=== PATIENT | female | born 1970 | race Caucasian/White ===

== ENCOUNTER → 2021-12-25 15:50 | Outpatient (CLI) | payer OTHER, SELFPAY ==
--- NOTE | 2021-12-25 15:54 | DI.RAD.S_ITS ---
PROCEDURE: XR HIP W PEL IF DONE ROXANA MIN 4V INDICATIONS: Low back right hip pain TECHNIQUE: AP pelvis with lateral view(s) of the bilateral hip(s). COMPARISON: None. FINDINGS: Bones: No fractures or dislocations. Pelvic ring appears intact. No suspicious bony lesions. Mild symmetric axial joint space narrowing. Soft tissues: The visualized bowel gas pattern is normal. No suspicious soft tissue calcifications. IMPRESSION: Mild symmetric hip joint degeneration. Dictated by: Tyler Sharif RR Interpreted: Kaley Newton MD on 12/25/2021 at 16:29 Transcribed by: GERA on 12/25/2021 at 16:30 Approved by: Kaley Newton M.D. on 01/06/2022 at 16:23
--- NOTE | 2021-12-25 15:54 | DI.MRI.S_ITS ---
PROCEDURE: MR LUMBAR SPINE WO CON INDICATIONS: Low back right hip pain TECHNIQUE: Noncontrast sagittal T1 spin echo and T2 fast echo, sagittal STIR, and T2 fast spin echo through the lumbar spine. In cases with scoliosis, additional coronal T2 fast spin echo may be performed. COMPARISON: [facility], CR, XR LUMBAR SPINE MIN 4V, 12/25/2021, 15:45. FINDINGS: Image quality: Excellent. Alignment and Curvature: There is normal bony alignment. Bone Marrow: Marrow is of normal overall signal. No acute vertebral body compression fractures. Spinal Cord: Conus medullaris terminates at the L1-L2 level. Visualized cord demonstrates normal signal and size. Paraspinous Soft Tissues: No paravertebral masses. T12-L1: No canal stenosis or foraminal stenosis. L1-L2: Minimal disc bulge. Facet hypertrophy. No canal stenosis or foraminal stenosis. L2-L3: Mild disc bulge. Facet hypertrophy. Mild canal stenosis. No significant foraminal stenosis. L3-L4: Mild disc bulge. Facet hypertrophy. Mild canal stenosis. Mild right foraminal stenosis. L4-L5: Disc bulge. Facet hypertrophy. Hbey-dn-emkthopg canal stenosis. Moderate right foraminal stenosis with mild flattening deformity on the exiting right L4 nerve root. L5-S1: Disc bulge. Facet hypertrophy. No canal stenosis. Mild bilateral foraminal stenosis. IMPRESSION: 1. Multilevel facet arthropathy. 2. Canal stenosis is mild at L2-L3, mild at L3-L4, and mild to moderate at L4-L5. 3. Multilevel foraminal narrowing as described above. Findings include moderate right foraminal narrowing at L4-L5. Dictated by: Titi Navarro M.D. on 12/26/2021 at 8:29 Approved by: Titi Navarro M.D. on 12/26/2021 at 8:46
--- NOTE | 2021-12-25 15:54 | DI.RAD.S_ITS ---
PROCEDURE: XR LUMBAR SPINE MIN 4V INDICATIONS: BACK PAIN TECHNIQUE: 5 views of the lumbar spine acquired, including flexion and extension views. COMPARISON: [facility], RG, XR L-SPINE 4-6V, 12/11/2021, 17:19. FINDINGS: Bones: 5 nonrib-bearing vertebrae are present. Mild levo scoliosis centered at the L4 level. 2 mm retrolisthesis L1-L2, L2-L3 and L3-L4. Mild multilevel disc height loss and there is facet joint arthropathy at the L4-L5 and L5-S1 levels. No pars interarticularis defects. No vertebral body compression fractures. No suspicious bony lesions. Soft tissues: Overlying bowel gas pattern is normal. No suspicious soft tissue calcifications. Cholecystectomy clips. IMPRESSION: 1. Mild multilevel spondylosis. Dictated by: Tyler Sharif [facility] Interpreted: Kaley Newton MD on 12/25/2021 at 16:30 Transcribed by: GERA on 12/25/2021 at 16:33 Approved by: Kaley Newton M.D. on 01/06/2022 at 16:24
== END ==
PROVIDERS: Family Provider Specialist; PCP Specialist; Referring Provider Physical Medicine & Rehabilitation; Visit Provider Physical Medicine & Rehabilitation
DX: M47.26 Other spondylosis with radiculopathy, lumbar region (principal); M47.27 Other spondylosis with radiculopathy, lumbosacral region; M48.061 Spinal stenosis, lumbar region without neurogenic claudication; M48.07 Spinal stenosis, lumbosacral region; M25.551 Pain in right hip; M16.0 Bilateral primary osteoarthritis of hip; M25.859 Other specified joint disorders, unspecified hip; M54.9 Dorsalgia, unspecified
CPT/HCPCS: 72110; 72148; 73522

== ENCOUNTER → 2022-01-26 11:40 | Outpatient (CLI) | payer OTHER, SELFPAY ==
[2022-01-26 12:29] LABS: COVID19 -Nasal RAPID Negative (Negative)
== END ==
PROVIDERS: Family Provider Specialist; PCP Specialist; Visit Provider Physical Medicine & Rehabilitation
DX: Z20.822 Contact with and (suspected) exposure to COVID-19 (principal)
CPT/HCPCS: 87635; C9803

== ENCOUNTER 2022-01-27 11:40 | Outpatient (CLI) | payer OTHER, SELFPAY ==
[2022-01-27] VITALS (9 sets, daily range): BP systolic 114–143; BP diastolic 64–84; PULSE 57–73; RESP 12–18; TEMP 36.8; O2SAT 98–100
--- NOTE | 2022-01-27 11:41 | DI.RAD.S_ITS ---
PROCEDURE: PAIN SI JOINT INJECTION INDICATIONS: SI JOINT DYSFUNCTION COMPARISON: None. FINDINGS: Fluoroscopic spot filming was performed to verify placement of spinal needles at the right SI joint level(s), as labeled on the films. Appropriate location(s) of the needle tip(s) was confirmed by injection of iodinated contrast. IMPRESSION: SI joint needle placement. Dictated by: Ingrid Rosado M.D. on 01/27/2022 at 14:40 Approved by: Ingrid Rosado M.D. on 01/27/2022 at 14:41
[2022-01-27] MEDS: MIDAZOLAM 2 MG/2 ML VIAL IV (13:17)
[2022-01-27] MEDS: BUPIVACAINE 0.5% (PF) VIAL 2 ML INJ (13:20)
[2022-01-27] MEDS: IOPAMIDOL 15 ML VIAL 3 ML INJ (13:21)
[2022-01-27] MEDS: BETAMETHASONE 30 MG/5 ML MDV 12 MG INJ (13:21)
--- NOTE | 2022-01-27 13:32 | PM.PROC.IR.1 ---
Date/Time/Diagnoses Date of procedure: 01/27/22 Time of procedure: 13:32 Pre-procedure diagnosis: Sacroiliac joint pain/DJD Post-procedure diagnosis: same Procedure Notes Procedure: Fluoroscopically guided contrast controlled right sacroiliac joint injection Indications: Selena is referred by Dr. Lerma for treatment of right sacroiliac joint DJD Physician: Umer Michaud Total Fluoroscopy time (seconds): 11 Total sedation minutes: 13 Complications: none Procedure in detail & Post-procedure care: DESCRIPTION OF PROCEDURE Fluoroscopically guided, contrast controlled right sacroiliac joint injection Following review of allergies and review of potential side effects and complications, including, but not necessarily limited to, infection, allergic reaction, local tissue breakdown, temporary as well as permanent nerve injury, paralysis, stroke and possible , the patient indicated that they understood and agreed to proceed. An informed consent was signed by the patient, witnessed by a nurse, and placed in the patient's chart. Additionally, other treatment options including modalities, medications, and physical therapy were reviewed with the patient. After review of previous anaesthesic history and IV conscious sedation the patient was deemed safe to proceed with today?s procedure with IV conscious sedation as ASA class II designation. Safety time-out was performed to confirm patient ID, procedure to be performed and site of procedure. IV sedation was accomplished with a combination of 2mg of Versed was administered by the RN after DO order, titrated to patient comfort during the course of the procedure while the patient remained responsive to all verbal commands In the prone position following sterile prep and drape of the pelvic region, the hyper lucency on in the inferior aspect of the sacroiliac joint was identified fluoroscopically the skin was anesthetized be a 25 gauge 1 eventual with approximately 2 cc of 1% lidocaine solution. At this point, a 22 gauge 3 in spinal needle was atraumatically introduced and advanced under fluoroscopic guidance into the inferior aspect of the right sacroiliac joint. Following negative aspiration, approximately 0.3cc of Isovue-300 was injected confirming intra-articular placement without vascular uptake. Radiographic data, including multiple fluoroscopic views of the pelvis, reveals a spinal needle in the sacroiliac joint hyper lucent zone. Subsequent view show flow contrast tear superiorly and inferiorly within the joint capsule without vascular intrathecal uptake. At this point a total of 1cc of 0.5% Marcaine was combined with 1cc of 6 mg of betamethasone was injected without incident. The procedure tolerated the procedure well without signs or symptoms of complications prior to transfer to the recovery area continued monitoring without incident. The patient was then transferred to the recovery area with a bur observed for an appropriate time after the injection. The patient reverted a vas score of 7 prior to the procedure and post-procedure vas of 1. POSTOP INSTRUCTIONS The patient was provided with a pain like to continue to record the patient's response to the target specific procedure prior to the patient's follow-up visit with the referring physician. Additionally, specific post injection care instructions and a contact number to our office were provided if concerns arise regarding the possible complications associated with procedure are suspected.
== END 2022-01-27 13:59 | disposition home or self-care (01) ==
LOC: RAD 11:41
PROVIDERS: Family Provider Specialist; PCP Specialist; Referring Provider Physical Medicine & Rehabilitation; Visit Provider Physical Medicine & Rehabilitation
DX: M53.3 Sacrococcygeal disorders, not elsewhere classified (principal); M46.1 Sacroiliitis, not elsewhere classified
CPT/HCPCS: 27096; 99152; J0702; J2250

== ENCOUNTER → 2024-06-30 11:38 | Outpatient (CLI) | payer OTHER, SELFPAY ==
--- NOTE | 2024-06-30 11:40 | DI.MRI.S_ITS ---
PROCEDURE: MR LUMBAR SPINE WO CON INDICATIONS: Spondylosis without myelopathy or radiculopathy, l TECHNIQUE: Noncontrast sagittal T1 spin echo and T2 fast echo, sagittal STIR, and T2 fast spin echo through the lumbar spine. In cases with scoliosis, additional coronal T2 fast spin echo may be performed. COMPARISON: [facility], MR, MR LUMBAR SPINE WO CON, 12/25/2021, 16:04. FINDINGS: Image quality: Excellent. Alignment and Curvature: There is normal bony alignment. Bone Marrow: Marrow is of normal overall signal. No acute vertebral body compression fractures. Spinal Cord: Conus medullaris terminates at the L1-L2 level. Visualized cord demonstrates normal signal and size. Paraspinous Soft Tissues: No paravertebral masses. T12-L1: Normal appearance. L1-L2: Facet degenerative change bilaterally with disc space narrowing and circumferential disc bulge results in mild central spinal stenosis. L2-L3: Facet degenerative changes and ligamentum flavum hypertrophy bilaterally right side greater than left with disc desiccation and mild bulge results in mild central spinal stenosis. L3-L4: Moderate facet degenerative changes bilaterally with circumferential disc bulge and desiccation. Far right lateral disc protrusion results in some mild to moderate right neural foraminal stenosis. Overall [id number] central spinal stenosis. L4-L5: Advanced facet degenerative changes and ligamentum flavum hypertrophy, disc desiccation and circumferential bulge. Mild central spinal stenosis with mild right neural foraminal stenosis. L5-S1: Facet degenerative changes left side greater than right with ligamentum flavum hypertrophy. Disc desiccation. No significant central spinal or neural foraminal stenosis. IMPRESSION: Multilevel lumbar spondylotic degenerative change overall fairly similar in appearance to the prior exam Dictated by: Peter Schultz M.D. on 06/30/2024 at 12:48 Approved by: Peter Schultz M.D. on 06/30/2024 at 12:54
== END ==
LOC: MRI 11:39
PROVIDERS: Family Provider Specialist; PCP Specialist; Referring Provider Physical Medicine & Rehabilitation; Visit Provider Physical Medicine & Rehabilitation
DX: M47.816 Spondylosis without myelopathy or radiculopathy, lumbar region (principal); M47.817 Spondylosis without myelopathy or radiculopathy, lumbosacral region
CPT/HCPCS: 72148

== ENCOUNTER 2024-10-26 11:26 | Outpatient (CLI) | payer OTHER, SELFPAY ==
[2024-10-26] VITALS (10 sets, daily range): BP systolic 112–158; BP diastolic 70–100; PULSE 67–85; RESP 12–16; TEMP 36.6; O2SAT 96–100
[2024-10-26] MEDS: MIDAZOLAM 2 MG/2 ML VIAL IV ×2 (13:22→13:31)
[2024-10-26] MEDS: LIDOCAINE 1% 20 ML 5 ML INJ (13:28)
[2024-10-26] MEDS: iopamidoL 15 ML VIAL 3 ML INJ (13:28)
[2024-10-26] MEDS: BUPIVACAINE 0.5% (PF) 10 ML VIAL 5 ML INJ (13:28)
--- NOTE | 2024-10-26 13:52 | PM.PROC.IR.1 ---
Date/Time/Diagnoses Date of procedure: 10/26/24 Time of procedure: 13:52 Pre-procedure diagnosis: FACET ARTHROPATHY Post-procedure diagnosis: same Procedure Notes Procedure: 1. BILATERAL L3, L4 AND L5 DIAGNOSTIC MB BLOCKS Indications: Selena is referred by Dr. Lerma for treatment of Bilateral Axial LBP. Physician: Umer Michaud Total Fluoroscopy time (seconds): 13 Total sedation minutes: 23 Complications: none Procedure in detail & Post-procedure care: DESCRIPTION OF PROCEDURE Fluoroscopically guided, contrast-controlled bilateral L3, L4 AND L5 medial branch blocks with 0.5cc of 0.5% Marcaine. Following review of allergy and review of potential side effects and complications, including, but not necessarily limited to, infection, allergic reaction, local tissue breakdown, nerve injury, paralysis, stroke and possible , the patient indicated that the patient understood and agreed to proceed. An informed consent document was signed by the patient, witnessed by a nurse, and placed in the patient's chart. After review of previous anaesthesic history and IV conscious sedation the patient was deemed safe to proceed with today's procedure with IV conscious sedation as ASA class II designation. Safety time-out was performed to confirm patient ID, procedure to be performed and site of procedure. IV sedation was accomplished with a combination of 4mg of Versed was administered by the RN after DO order, titrated to patient comfort during the course of the procedure while the patient remained responsive to all verbal commands In the prone position, following sterile prep and drape of the lumbar region, the right L3, L4 AND L5 anatomical location of the medial branch of the dorsal ramus was identified fluoroscopically. Subsequently an anesthetic skin wheal using 1% lidocaine solution was initiated at each of the anatomical spots. Subsequently then a 22-gauge 3.5-inch spinal needle was atraumatically introduced and advanced under fluoroscopic guidance at each of the corresponding sites at the right L3, L4 and L5 MB. After negative aspiration, 0.2cc of Isovue 200 was injected, confirming placement without vascular or intrathecal uptake. Subsequently then 0.5cc of 0.5% Marcaine solution was injected at each of the corresponding sites at the right L3, L4 and L5 medial branch locations. The identical procedure was replicated on the left. The patient tolerated the procedure well without signs or symptoms of complications. The patient tolerated the procedure well without signs or symptoms of complications prior to transfer to the recovery area continued monitoring without incident. Post-procedure, the patient was monitored initiating provocative activities to measure the amount of relief from block of the facetogenic pain. The patient reported a VAS of 7 prior to the procedure and a post-procedure VAS of 1. It has been a pleasure to assist in the diagnostic and therapeutic care of your patient. POST OP INSTRUCTIONS The patient was provided with a Pain Log to complete over the next several hours and subsequent days prior to the patient's follow up with the ordering physician. If the patient has chain maker relief to the solution applied, then they may be a candidate for medial branch rhizotomy. The patient is aware, was provided, once again, with a Pain Log and will follow up with the referring physician for review and clinical correlation
== END 2024-10-26 14:07 | disposition home or self-care (01) ==
PROVIDERS: Family Provider Specialist; PCP Specialist; Referring Provider Physical Medicine & Rehabilitation; Visit Provider Physical Medicine & Rehabilitation
DX: M47.816 Spondylosis without myelopathy or radiculopathy, lumbar region (principal)
CPT/HCPCS: 64493; 64494; 99152; 99153; J2250

== ENCOUNTER → 2025-02-09 10:58 | Outpatient (CLI) | payer OTHER, SELFPAY ==
--- NOTE | 2025-02-09 11:38 | EKG_ITS ---
[facility] [address] [place] [address] Test Date: 2025-02-09 Pat Name: Selena Lucero Department: Room: Gender: Female Personal Care Worker: : 1970 Requested By: Order Number: [id number] Reading MD: Yuri Manjarrez Measurements Intervals [place] Rate: 61 P: 28 WI: 126 QRS: 20 QRSD: 94 T: 14 QT: 432 QTc: 434 Interpretive Statements Normal sinus rhythm with sinus arrhythmia Electronically Signed On 02-16-2025 14:00:29 PDT by Yuri Manjarrez
[2025-02-09 11:40] LABS: Add Manual Diff / Slide Review NO; Hematocrit 40.0 % (36-46); Hemoglobin 13.5 g/dL (12.0-16.0); Lymphocytes Absolute Auto 1100 /uL (1100-4500); Mean Corpuscular HGB Conc 33.8 % (30-36); Mean Corpuscular Hemoglobin 31.9 PG (26-34); Mean Corpuscular Volume 94.2 fL (80-100); Platelet Count 320 X10^3/uL (150-400)
[2025-02-09 12:23] LABS: Vitamin D 25 Hydroxy (D3) 43.4 ng/mL (30.0-100.0)
[2025-02-09 12:53] LABS: Albumin 4.1 g/dL (3.5-5.0); Blood Urea Nitrogen 19 mg/dL (7-17); Calcium 8.9 mg/dL (8.4-10.2); Carbon Dioxide 25 mmol/L (22-32); Chloride 104 mmol/L (98-107); Estimated Glomerular Filt Rate > 60 mL/min (>60); Glucose 107 mg/dL (70-99); HEMOLYSIS < 15 (0-50); Potassium 4.6 mmol/L (3.4-5.1); Sodium 137 mmol/L (137-145)
[2025-02-09 13:00] LABS: Prealbumin 30.4 mg/dL (17.6-36.0)
[2025-02-09 13:23] LABS: Hemoglobin A1C% w Est Avg Glu 4.9 % (4.0-6.0)
== END ==
PROVIDERS: Family Provider Specialist; PCP Specialist; Referring Provider Orthopaedic Surgery Adult Reconstructive Orthopaedic Surgery; Visit Provider Orthopaedic Surgery Adult Reconstructive Orthopaedic Surgery
DX: Z01.812 Encounter for preprocedural laboratory examination (principal); Z01.818 Encounter for other preprocedural examination; M16.12 Unilateral primary osteoarthritis, left hip; M25.552 Pain in left hip; Z68.28 Body mass index [BMI] 28.0-28.9, adult
CPT/HCPCS: 36415; 73502; 80048; 82040; 82306; 83036; 84134; 85025; 93005; 99214

== ENCOUNTER 2025-03-22 13:30 | Outpatient (CLI) | payer OTHER, SELFPAY ==
[2025-03-22] VITALS (12 sets, daily range): BP systolic 105–159; BP diastolic 60–77; PULSE 54–81; RESP 16; TEMP 36.9; O2SAT 97–100
[2025-03-22] MEDS: MIDAZOLAM 2 MG/2 ML VIAL 4 MG IV (15:15)
[2025-03-22] MEDS: LIDOCAINE 2% INJ MDV 20ML 5 ML INJ (15:19)
[2025-03-22] MEDS: LIDOCAINE 1% 20 ML 5 ML INJ (15:19)
--- NOTE | 2025-03-22 15:37 | P.PCN_ITS ---
Date/Time/Diagnoses Date of procedure: 03/22/25 Time of procedure: 15:38 Pre-procedure diagnosis: 1. FACET ARTHROPATHY Post-procedure diagnosis: same Procedure Notes Procedure: 1. BILATERAL L3, L4 AND L5 DIAGNOSTIC MB BLOCKS Indications: Selena is referred by Dr. Lerma for treatment of Bilateral Axial LBP. Physician: Umer Michaud Total Fluoroscopy time (seconds): 12 Total sedation minutes: 16 Complications: none Procedure in detail & Post-procedure care: DESCRIPTION OF PROCEDURE Fluoroscopically guided, contrast-controlled bilateral L3, L4 and L5 medial branch blocks with 0.5cc of 2% Lidocaine. Following review of allergy and review of potential side effects and complications, including, but not necessarily limited to, infection, allergic reaction, local tissue breakdown, nerve injury, paralysis, stroke and possible , the patient indicated that the patient understood and agreed to proceed. An informed consent document was signed by the patient, witnessed by a nurse, and placed in the patient's chart. After review of previous anaesthesic history and IV conscious sedation the patient was deemed safe to proceed with today's procedure with IV conscious sedation as ASA class II designation. Safety time-out was performed to confirm patient ID, procedure to be performed and site of procedure. IV sedation was accomplished with a combination of 4mg of Versed was administered by the RN after DO order, titrated to patient comfort during the course of the procedure while the patient remained responsive to all verbal commands In the prone position, following sterile prep and drape of the lumbar region, the right L3, L4 and L5 anatomical location of the medial branch of the dorsal ramus was identified fluoroscopically. Subsequently an anesthetic skin wheal using 1% lidocaine solution was initiated at each of the anatomical spots. Subsequently then a 22-gauge 3.5-inch spinal needle was atraumatically introduced and advanced under fluoroscopic guidance at each of the corresponding sites at the right L3, L4 and L5 MB. After negative aspiration, 0.2cc of Isovue 200 was injected, confirming placement without vascular or intrathecal uptake. Subsequently then 0.5cc of 2% Lidocaine solution was injected at each of the corresponding sites at the right L3, L4 and L5 medial branch locations. The identical procedure was replicated on the left. The patient tolerated the pro cedure well without signs or symptoms of complications. The patient tolerated the procedure well without signs or symptoms of complications prior to transfer to the recovery area continued monitoring without incident. Post-procedure, the patient was monitored initiating provocative activities to measure the amount of relief from block of the facetogenic pain. The patient reported a VAS of 7 prior to the procedure and a post-procedure VAS of 1. It has been a pleasure to assist in the diagnostic and therapeutic care of your patient. POST OP INSTRUCTIONS The patient was provided with a Pain Log to complete over the next several hours and subsequent days prior to the patient's follow up with the ordering physician. If the patient has customs compliance manager relief to the solution applied, then they may be a candidate for medial branch rhizotomy. The patient is aware, was provided, once again, with a Pain Log and will follow up with the referring physician for review and clinical correlation
== END 2025-03-22 16:05 | disposition home or self-care (01) ==
LOC: RAD 13:31
PROVIDERS: PCP Specialist; Referring Provider Physical Medicine & Rehabilitation; Visit Provider Physical Medicine & Rehabilitation
DX: M47.816 Spondylosis without myelopathy or radiculopathy, lumbar region (principal)
CPT/HCPCS: 64493; 64494; 99152; J2250

== ENCOUNTER 2025-04-02 06:04 | Day surgery (SDC) | payer OTHER, SELFPAY ==
[2025-03-26 13:57] VITALS: BMI 28.7
[2025-04-02] VITALS (15 sets, daily range): BP systolic 91–121; BP diastolic 49–86; PULSE 48–73; RESP 9–20; TEMP 35.6–36.7; O2SAT 62–100; BMI 28.7
--- NOTE | 2025-04-02 | DI.RAD.S_ITS ---
PROCEDURE: XR HIP W PEL IF DONE LT 2V INDICATIONS: LT TOTAL HIP TECHNIQUE: AP pelvis and lateral view of the hip acquired. COMPARISON: Merged With [facility], CR, XR HIP W PEL IF DONE ROXANA 3TO4V, 12/25/2021, 15:45. [facility], CR, XR PELVIS WITH LATERAL HIP RIGHT, 03/23/2024, 8:26. Merged With [facility], CR, XR HIP W PEL LT 2V, 04/02/2025, 8:51. FINDINGS: Bones: Patient is status post bilateral hip arthroplasty, with hardware components in expected positions. The hip joint appears congruent. The visualized bony structures appear intact. Soft tissues: Overlying postoperative changes are noted. No suspicious soft tissue densities. IMPRESSION: Stable appearance of right and left hip arthroplasty without radiographic evidence for interval hardware complication, the left of which was more recently placed. Dictated by: Tyler VO Interpreted: Jamie Pa MD on 04/02/2025 at 11:58 Transcribed by: BRIAN on 04/02/2025 at 12:00 Approved by: Jamie Pa M.D. on 04/11/2025 at 14:40
[2025-04-02] MEDS: ACETAMINOPHEN 325 MG TABLET 975 MG PO (06:53)
[2025-04-02] MEDS: LACTATED RINGERS 1,000 ML 42 ML IV ×2 (06:53→09:09)
--- NOTE | 2025-04-02 07:41 | PM.PREOP ---
Pre-operative Note Interval Note History & Physical reviewed/Exam performed by Physician: Yes Changes to H&P: No
--- NOTE | 2025-04-02 08:05 | DI.RAD.S_ITS ---
PROCEDURE: XR HIP W PEL IF DONE LT 2V INDICATIONS: ANN TECHNIQUE: 7 operative view(s) of the hip acquired. COMPARISON: [facility], [place], XR HIP W PEL IF DONE ROXANA 3TO4V, 12/25/2021, 15:45. FINDINGS: 7 C arm images obtained during performance of a total left hip arthroplasty. No radiographic evidence of complications. IMPRESSION: Imaging utilized during performance of a total left hip arthroplasty. Dictated by: Titi Navarro M.D. on 04/02/2025 at 10:55 Approved by: Titi Navarro M.D. on 04/02/2025 at 10:56
[2025-04-02] MEDS: TRANEXAMIC ACID 1,000 MG VIAL 1000 MG INJ ×2 (08:10→09:38)
--- NOTE | 2025-04-02 08:25 | SUR.OPER ---
Patient supine on padded Delmar table, arms on padded arm board at <90, , both legs secured in padded traction boots and positioned per surgeon, padded post at patient's groin, pressure points checked and padded.
[2025-04-02] MEDS: KETOROLAC 30 MG/ML VIAL 15 MG IV (08:34)
--- NOTE | 2025-04-02 09:58 | P.OP_ITS ---
Operative Date/Time/Diagnoses Date of procedure: 04/02/25 Time of procedure: 07:45 Pre-op diagnosis: Left hip osteoarthritis Post-op diagnosis: same Procedure & Clinicians Procedure: Left total hip arthroplasty Same procedure(s) as scheduled: Yes Surgeon: Artis Barrett Assisted?: Yes Enlisted Aircrew/Aerial Observer/Gunner: Jennifer Rosado Anesthesia Type: Spinal, Sedation and Local Operative Notes Findings: Severe hip arthritis Closure Type: primary Applied: implant(s) Estimated Blood Loss (mL): 150 Procedure in detail: 1. Left Uncemented Direct Anterior Zahira Total Hip Arthroplasty (33595) 2. Computer-Assisted Musculoskeletal Surgical Navigational Orthopedic Procedure Using Fluoroscopic Image Guidance (0054T) Implants: * G7 PPS size 52 cup? * Christie femoral stem size 19-125? * 36 mm +0 ceramic femoral head? Procedure Summary: This 55-year-old female returned today for her 2nd total hip arthroplasty. She had previously had the right side replaced by me. I used a Christie stem on that side and did on this side as well as she has significant coxa valga. Given the straight femoral access required for that stem design I did use a conjoined tendon release to prepare for the hand reaming process. I used the same size trials as I had used on the contralateral side and found that she was about 2 mm long on the operative side so when I returned for final implant placement hand reamed a few mm further down the canal and then placed the definitive implants. The final construct was within a mm of the contralateral side in terms of both leg length and offset according to the ortho grid at the conclusion of the case. Stability was excellent with no ability to dislocate the hip with maximum external rotation. Procedure in Detail: This patient was seen preoperatively and evaluated for hip pain which was refractory to numerous nonoperative treatment modalities. Their hip pain correlated with radiographic changes demonstrating significant degeneration in the hip joint. The risks and benefits of continued nonoperative management versus operative management were discussed at length and all of the patient?s questions were answered. Additional educational materials providing further details beyond our discussion in clinic were provided via a publicly available patient education video which included the incidence of medical complications associated with total hip arthroplasty, reasons for revision following total hip arthroplasty, and patient satisfaction rates following total hip arthroplasty. With this understanding of the risks inherent to the procedure, the patient elected to move forward with operative management. Following preoperative optimization, the patient was scheduled for surgery. The patient was met in the preoperative holding area the day of the procedure and all questions were answered. The patient?s nares were swabbed in order to decolonize them from MRSA. Informed consent was signed and the left limb was marked with indelible ink.? The patient was brought back to the operating room where anesthesia was induced. The patient was transferred to the [place] table and all bony prominences were padded. The operative site was prepped and draped in the usual sterile fashion. Prior to incision, tranexamic acid and cefazolin were administered. Operative templating images were displayed demonstrating the anticipated implant sizes and correct operative extremity. A timeout procedure was performed verifying the patient?s identity, medical comorbidities, allergies, relevant medications, anesthesia type and the surgical plan. All present were in agreement. The assistance of a physician clinical medical assistant was required for positioning, room setup, soft tissue retraction and wound closure. Without this assistance, the procedure would have been significantly more challenging and time consuming.?? A direct anterior approach to the hip was utilized. This was performed with a longitudinal incision through a Heuter interval. The incision was planned 2 cm distal and 2 cm lateral to the ASIS extending towards the lateral patella, in line with the muscle body of the TFL. Following incision, the subcutaneous tissue was dissected while taking care to avoid injury to the lateral femoral cutaneous nerve. The fascia overlying the TFL was identified by dissecting off the overlying fat and identifying perforating vessels to the TFL. The TFL fascia was incised and dissected away from the medial border of the TFL. A retractor was placed over the superior femoral neck between the abductors and the hip capsule and used to reflect the TFL laterally. A Lejunior self-retainer was then placed in the distal aspect of the wound between the TFL and the rectus femoris. This was tensioned to open up the direct anterior interval and the lateral circumflex vessels were identified and coagulated using electrocautery. The floo r of the TFL fascia was incised, exposing the pericapsular fat overlying the hip capsule. A second cobra retractor was placed on the inferior femoral neck. A retractor was placed on the anterior wall of the acetabulum and used to tension the reflected head of rectus femoris, which was then released in order to limit soft tissue tension. A capsulotomy was made in the midline of the anterior hip capsule in line with the femoral neck ending at the vastus tubercle. The anterior retractor was removed as soon as the capsulotomy was completed in order to limit the amount of time that a soft tissue retractor remained on the anterior wall and limit tension on the femoral nerve. Tag stitches were placed in the superior and inferior leaflets of the hip capsule. An Michel soft tissue retractor was introduced over the tag stitches and tensioned in the interval between the rectus femoris and the TFL in order to retract and protect those muscles. The cobra retractors were replaced intracapsularly, with one over the superior neck in the pocket created by the base of the greater trochanter and the other on the femoral head. The capsulotomy was extended laterally to the base of the greater trochanter and medially to the lesser trochanter. This required externally rotating the hip. Once the lesser trochanter had been identified, a neck cut was planned according to measurements from preoperative t emplating. A ruler was cut at the length measured between the superior aspect of the lesser trochanter and the collar of the prosthesis. This line was extended towards the inferior aspect of the lateral cobra retractor to plan a cut which would leave minimal residual femoral neck laterally. The neck was cut at 60 degrees of external rotation along that line. A second cut was performed to remove a large napkin ring and facilitate head extraction. The napkin ring cut and femoral head were removed.?? A broad anterior wall retractor was placed between the labrum and the anterior capsule so that the anterior capsule would prevent capturing and pinching the femoral nerve anteriorly. An additional retractor was placed on the posterior wall. External rotation and traction were applied through the Littleton table so that the cut surface of the femoral neck would not restrict access to the acetabulum. The labrum was excised sharply and the pulvinar was excised with electrocautery to limit bleeding from branches of the obturator artery. Acetabular reamers were selected based on preoperative templating and measurements of the excised femoral head. These were introduced into the acetabulum. Fluoroscopy was utilized to replicate a standing AP pelvis radiograph by centering over the pelvis, rotating until there was appropriate symmetry between the obturator foramen, and introducing caudal tilt to match the position of the pubic symphysis relative to the sacrococcygeal junction according to the patient?s anatomy. Once satisfied with the reaming depth corresponding to the preoperative template and the pinch fit between the columns, an appropriate sized acetabular cup was selected which would provide 1 mm of press-fit. This cup was introduced and manipulated until appropriate abduction and anteversion angles were obtained with careful attention to appropriate abduction and anteversion angles as evaluated by the position of the cup relative to the anterior and posterior quach of the acetabulum and the AP fluoroscopy which recreated the patient?s standing radiograph. The cup was impacted into place. Peripheral osteophytes were removed. The acetabular liner was then placed with care to ensure locking of the locking mechanism. Attention was then turned to the femur. All retractors were removed, traction was released, a retractor was placed in the interval between the hip capsule and the gluteus minimus. The lateral capsule was released using electrocautery. Traction was released and a Littleton hook was placed posteriorly around the proximal femur at the level of the vastus ridge. The table height was lowered in order to restrict the tension on the anterior structures during hip hyperextension to limit the risk of femoral nerve palsy. With traction off and the hip at 90 degrees of external rotation, the hip was hyperextended and adducted while manually elevating the femur away from the acetabulum with the Littleton hook to avoid hooking the greater trochanter on the pelvis. An asymmetric retractor was placed over the calcar and a broad double-pronged retractor was placed over the greater trochanter. The tag stitch capturing the lateral leaflet of the capsule was moved to the medial side, leaving the conjoined and piriformis tendons isolated in the face of the greater trochanter. The hip was externally rotated and elevated. A release of the conjoined tendon was necessary in order to obtain adequate exposure for broaching. The canal was opened with an opening broach and a rasp was used to remove cancellous bone. A rongeur was used to remove the residual lateral bone at the base of the greater trochanter to avoid placing the stem in varus. The femur was then hand reamed to the appropriate sized stem yielding good rotational fit and fill of the canal as well as appropriate version of the stem trial. Neck and head trials were placed, all retractors were removed and the hip was returned to neutral abduction and extension. I then reduced the hip and manually trialed it before changing surgical gloves. Initial trialing was performed with a size 19-125 trial and a +0 head. I initially manually externally rotated the hip and found that I was unable to manually dislocate the hip. I then locked the hip in 45 degrees of external rotation and dropped it to the floor with traction off which demonstrated no instability. The ortho grid was utilized to overlay the nonoperative side on the operative side comparing the construct in terms of leg length and offset after replicating the overlay of the relative hemipelvis of each side. This demonstrated that offset was essentially equal between the 2 sides and that the operative side was about 2 mm long. AP and lateral hip fluoroscopic images were obtained to evaluate the broach size which demonstrated good canal fill. The hip was dislocated and I returned to the broaching position. Based on my evaluation during initial trialing I planned to sink the shank cementer hand slightly further to more closely approximate leg length and then placed definitive implants. I did this and was able to sink the shank cementer hand just slightly further down the canal. The definitive stem was placed and the trunnion was cleaned and dried. I placed a ceramic head onto the trunnion and impacted it into place on the Richey taper.?? All retractors were removed and the hip was reduced. A dilute mixture of betadine and peroxide was used to bathe the soft tissues during final fluoroscopic assessment. Appropriate component positioning was confirmed on an overlay using the ortho grid with the nonoperative side and the operative side overlaid with varying opacity. This confirmed that there was equal offset and leg length was within a mm. Appropriate stem fill was evaluated on AP and lateral hip radiographs. No previously unrecognized fractures were identified on these radiographs. There was no hip instability with maximum (110?) external rotation as well as a 45 degree drop test. The hip was copiously irrigated with pulse lavage. The capsule was closed with absorbable interrupted suture. The TFL fascia was closed with barbed suture while carefully protecting the lateral femoral cutaneous nerve from entrapment. A mixture of Ropivacaine, Epinephrine and Toradol was infiltrated throughout the soft tissues. The skin was closed with 2-0 and 3-0 sutures. Surgical glue was applied and a soft dressing was placed.??The sponge, instrument and needle counts were reported as being correct at the end of the case.??No obvious complications occurred. The patient was transferred from the [place] table back to a stretcher. The patient emerged from anesthesia without difficulty and was taken to the PACU in a stable condition.? Plan for aftercare: * No hip precautions * Weightbearing as tolerated * Aspirin 81 twice per day for DVT prophylaxis * Anticipate discharge home tomorrow. Patient will need to take a [place] home and has a fair that will depart at 10:30 a.m. tomorrow morning. I would like her to be prepared for discharge this evening so that she is able to reliably make that very in time. * Multimodal pain regimen with no IV opioids ordered * Follow up at [facility] in 2 weeks Complications: none Post-operative Condition: stable Disposition: PACU
[2025-04-02] MEDS: ACETAMINOPHEN 325 MG TABLET 650 MG PO ×3 (11:30→22:29)
[2025-04-02] MEDS: LACTATED RINGERS 1,000 ML 100 ML IV ×2 (12:21→22:30)
[2025-04-02] MEDS: IBUPROFEN 600 MG TABLET PO (13:31)
--- NOTE | 2025-04-02 13:58 | PT.IIE ---
Current Diagnoses Unilateral primary osteoarthritis, left hip (04/02/25) Surgery Performed Operation Date: 04/02/25 07:45 Actual Procedures p Total Hip Arthroplasty/Anterior Approach(Left) - Artis Barrett MD Surgical History (Last Updated 03/26/25 @ 14:37 by Terese Flores, RN) H/O gastric sleeve (01/2018) History of arthroscopy of right shoulder History of colonoscopy (10/03/15) History of colonoscopy with polypectomy (09/10/09) History of ear surgery History of total right hip replacement (2023) Hx of arthroscopy of right knee S/P left unicompartmental knee replacement Status post bilateral salpingo-oophorectomy (BSO) (06/29/11) Status post laparoscopic cholecystectomy Status post laparoscopic supracervical hysterectomy (06/29/11) Medical History (Last Updated 03/26/25 @ 14:08 by Terese Flores RN) Acid reflux Asthma Colon polyps (09/10/09) Facet arthropathy, lumbar Femoral acetabular impingement Fibroids Lumbar radiculopathy Primary osteoarthritis of left hip Sacral dysfunction Physical Therapy Inpatient Evaluation/Re-Eval M1 PT/OT-IP Prior Functional Status Start: 04/02/25 13:12 Freq: NEEDED Status: Active Protocol: Document 04/02/25 13:12 [facility] (Rec: 04/02/25 13:57 [facility] [id number]) Medical Review Prior Functional Status Medical History Yes Reviewed Diet/Fluid Regular Consistency Communication WNL Mobility and Gait no AD Activities of Daily drives, cooks and cleans, indep w/ADLs-slowly d/t pain Living and IADL's with bending and squatting Social History Household Members spouse Living Arrangements House Number of Floors ( One Floor Floors) Number of Stairs To ramp entry Enter/Railing? 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 M2 PT-IP Current Condition Start: 04/02/25 13:12 Freq: NEEDED Status: Active Protocol: Document 04/02/25 13:12 [facility] (Rec: 04/02/25 13:57 [facility] [id number]) Physical Therapy Current Condition Current Condition Evaluation Date 04/02/25 Treatment Diagnosis L ANN ant M3 PT-IP Subjective Start: 04/02/25 13:12 Freq: NEEDED Status: Active Protocol: Document 04/02/25 13:12 [facility] (Rec: 04/02/25 13:57 [facility] [id number]) Subjective Physical Therapy Visit Type Type Initial Evaluation Visit Start Time 13:10 Visit Stop Time 13:48 Number of EMERGENCY PREPAREDNESS MANAGER Visits 0 Physical Therapy Visit Comments Patient Comments plans to take [facility] tomorrow Therapy Pain Assessment Pain When Pain Assessed During Mobility Pain Present Pain Present Pain Reported Location Left Hip Intensity 6 M4 PT-IP Mobility and Gait Start: 04/02/25 13:12 Freq: NEEDED Status: Active Protocol: Document 04/02/25 13:12 [facility] (Rec: 04/02/25 13:57 [facility] [id number]) PT-Bed Mobility Assessment Supine to Sit Supine to Sit Independent Sit to Supine Sit to Supine Independent Scooting Scooting to Edge of Independent Bed PT-Transfer Assessment Sit to and From Stand Sit to and from Standby Assistance Stand Equipment Transfer Assistive Gait Belt,4 Wheeled Walker Device Orthotic/Prosthetic No Devices or Brace: Comments Mobility Comments supine BP 111/70; seated 113/67; indep w/bed mobility and scoot to EOB, sit to stand SBA w/min cues for breaks, amb w/4WW in room to bathroom and sat on toilet and voided and wiped indep and sit to stand SBA. ambdown daniel 200ft SBA then sat EOB and did sit to supine indep. Left with call light in reach and edu to call if need assist Gait Assessment Gait Gait Assistance Standby Assistance Required: Distance (Feet) 200 Assistive Devices Assistive Device Gait Belt,4 Wheeled Walker Gait Deviations General Gait Pattern Antalgic Factors Limiting Gait Function Factors Limiting Decreased Strength,Pain Gait Function PT-Balance Assessment Sitting Balance and Reactions Static Sitting Normal Balance Ability Dynamic Sitting Normal Balance Ability Standing Balance and Reactions Static Standing Good Balance Ability Dynamic Standing Good Balance Ability Device Used 4WW M5 PT-IP Objective Assessments Start: 04/02/25 13:12 Freq: NEEDED Status: Active Protocol: Document 04/02/25 13:12 [facility] (Rec: 04/02/25 13:57 [facility] [id number]) Orientation Orientation/Cognition Level of Alertness Alert Language Function No Deficits Noted Ability Safety Awareness Understands Safety Issues Memory Description No Deficits Noted Gross Range of Motion Lower Extremity ROM Assessment Left Impaired Impairments dec hip AROM d/t pain Strength Lower Extremity Strength Hip 3-/5 Muscle Tone Muscle Tone WNL Yes M6 PT-IP Treatment Start: 04/02/25 13:12 Freq: NEEDED Status: Active Protocol: Document 04/02/25 13:12 [facility] (Rec: 04/02/25 13:57 [facility] [id number]) Physical Therapy Treatment Exercises Exercises Ankle Pumps,Gluteal Sets,Quad Sets,Heel Slides Education Education Provided Weight Bearing Status,Post-Op Packet,Safety M7 PT-IP Assessment and Plan Start: 04/02/25 13:12 Freq: NEEDED Status: Active Protocol: Document 04/02/25 13:12 [facility] (Rec: 04/02/25 13:57 [facility] [id number]) PT Summary Assessment and Plan Potential Rehabilitation Excellent Potential Status of Condition Evolving at Evaluation Summary Impairments Pain,ROM,Strength,Balance,Transfers,Gait,Activity Tolerance Assessment Summary Pt presents day of L ant ANN w/overall good mobility despite her pain. She is set up well at her house and has mom and available to assist her. She did well with HEP given and demonstrated understanding for safety concerns. Pt would benefit from skilled PT to address mobility deficits. Goals Bed Mobility Goal Independent Transfer Goal Independent Gait Goal Independent Gait Distance 200ft Days to Meet Goals 4 Frequency of Treatment Frequency Of Once a Day Treatment Treatment Plan Physical Therapy Bed Mobility Training,Transfer Training,Gait Training, Treatment Plan Balance Retraining,Neuromuscular Re-ed,Coordination Retraining Weight Bearing Status Weight Bearing Weight Bear as Tolerated Status Recommendations To Nursing Amount of Assist Standby Assistance Needed Discharge Recommendations PT Discharge Home with Assistance,Outpatient PT Recommendations Transportation Needs Private Vehicle at Discharge
--- NOTE | 2025-04-02 16:07 | PM.PNPO.1 ---
Subjective Subjective Interval history: I came by to check on Selena postop. She is doing very well. She has ambulated with Physical therapy and made good progress. She has pain that is well-controlled and a dressing that is clean dry and intact an intact sciatic and femoral nerve function. She is eager to discharge home tomorrow morning on the 10:[address] [facility] so we will make arrangements for that this evening to make sure that she can make that very and reliably get home tomorrow. Exam Vital Signs (past 8 hours): - 04/02/25 10:20 04/02/25 10:25 04/02/25 10:30 Temperature 98.1 F Pulse Rate 66 66 61 Respiratory Rate 20 19 19 Blood Pressure 98/57 L 93/53 L 91/49 L Pulse Oximetry 99 100 100 Oxygen Delivery Method Room Air Room Air Room Air Oxygen Flow Rate 04/02/25 10:36 04/02/25 10:41 04/02/25 10:47 Temperature Pulse Rate 57 L 54 L 52 L Respiratory Rate 9 L 10 L 9 L Blood Pressure 106/57 L 113/57 L 113/58 L Pulse Oximetry 100 100 100 Oxygen Delivery Method Room Air Room Air Room Air Oxygen Flow Rate 04/02/25 10:52 04/02/25 11:00 04/02/25 11:14 Temperature 97.4 F L 96.0 F L Pulse Rate 51 L 48 L 62 Respiratory Rate 12 15 15 Blood Pressure 115/57 L 118/57 L 110/63 Pulse Oximetry 99 100 100 Oxygen Delivery Method Room Air Room Air Oxygen Flow Rate 0 04/02/25 11:45 04/02/25 13:09 04/02/25 13:10 Temperature 96.5 F L Pulse Rate 73 73 67 Respiratory Rate 15 16 16 Blood Pressure 103/63 110/71 111/70 Pulse Oximetry 98 98 98 Oxygen Delivery Method Oxygen Flow Rate 0 0 0 04/02/25 14:34 Temperature Pulse Rate 67 Respiratory Rate 17 Blood Pressure 113/67 Pulse Oximetry 98 Oxygen Delivery Method Oxygen Flow Rate 0 Oxygen Delivery Method Room Air Oxygen Flow Rate 0 [facility] Medical History (Updated 03/26/25 @ 14:08 by Terese Flores RN) Acid reflux Asthma Primary osteoarthritis of left hip Facet arthropathy, lumbar Sacral dysfunction Femoral acetabular impingement Lumbar radiculopathy Colon polyps (09/10/09) Fibroids Surgical History (Updated 03/26/25 @ 14:37 by Terese Flores RN) H/O gastric sleeve (01/2018) History of total right hip replacement (2023) History of arthroscopy of right shoulder Hx of arthroscopy of right knee S/P left unicompartmental knee replacement History of ear surgery History of colonoscopy (10/03/15) History of colonoscopy with polypectomy (09/10/09) Status post bilateral salpingo-oophorectomy (BSO) (06/29/11) Status post laparoscopic cholecystectomy Status post laparoscopic supracervical hysterectomy (06/29/11) Family History Unknown No pertinent family history Social History household members: spouse Smoking Status: Former smoker alcohol intake: current Assessment & Plan Post-op Postoperative Procedures: Procedures Operation Date: 04/02/25 07:45 Actual Procedure Side Surgeon p Total Hip Arthroplasty/Anterior Approach Left Artis Barrett MD
[2025-04-02] MEDS: CALCIUM CARBONATE 500 MG TAB 1000 MG PO ×2 (17:50→21:04)
[2025-04-02] MEDS: PANTOPRAZOLE DR 40 MG TABLET PO (17:50)
[2025-04-02] MEDS: ASPIRIN EC 81 MG TABLET PO (20:59)
[2025-04-02] MEDS: DOCUSATE 100 MG CAPSULE PO (20:59)
[2025-04-02] MEDS: CYCLOBENZAPRINE 10 MG TABLET PO (22:30)
--- NOTE | 2025-04-03 03:39 | PC.NURSE ---
Received report from Mony Noriega RN
[2025-04-03] MEDS: ACETAMINOPHEN 325 MG TABLET 650 MG PO (05:44)
[2025-04-03 06:08] LABS: Add Manual Diff / Slide Review NO; Hematocrit 32.0 % (36-46); Hemoglobin 10.9 g/dL (12.0-16.0); Lymphocytes Absolute Auto 1100 /uL (1100-4500); Mean Corpuscular HGB Conc 34.2 % (30-36); Mean Corpuscular Hemoglobin 32.0 PG (26-34); Mean Corpuscular Volume 93.5 fL (80-100); Platelet Count 220 X10^3/uL (150-400)
[2025-04-03 06:23] LABS: Blood Urea Nitrogen 14 mg/dL (7-17); Calcium 8.7 mg/dL (8.4-10.2); Carbon Dioxide 28 mmol/L (22-32); Chloride 105 mmol/L (98-107); Estimated Glomerular Filt Rate > 60 mL/min (>60); Glucose 100 mg/dL (70-99); HEMOLYSIS < 15 (0-50); Potassium 4.2 mmol/L (3.4-5.1); Sodium 136 mmol/L (137-145)
--- NOTE | 2025-04-03 06:41 | P.DS_ITS ---
History of Present Illness History of Present Illness Chief complaint: Left ANN anterior Narrative: 55 year old female with a past medical history of migraines presented to [facility] on 04/02/25 for elective left total hip arthroplasty by Dr Barrett. She was experiencing chronic left hip pain and was diagnosed with osteoarthritis leading to elective left total hip arthroplasty. She previously had a right total hip arthroplasty again by Dr. Barrett. On the date of surgery there were no changes to her medical history, medications or allergies. Consent had previously been obtained and the patient was in agreement to proceed with planned left total hip arthroplasty. Discharge Providers Provider Discharge Date: 04/03/25 Primary care physician: Britt Lerma MD Consults: 04/02/25 08:03 Consult to Anesthesiology Routine Comment: Consulting Provider: Anesthesiologist Reason for consultation: Regional block for post operative pain control 04/02/25 11:14 Consult to Discharge Planning Routine Comment: Consult to Occupational Therapy Evaluate & Treat Comment: Physician Instructions: Evaluate and treat Consult to Physical Therapy Evaluate & Treat Comment: Physician Instructions: Evaluate and Treat Discharge provider: [facility] Dr Summary Hospital Course Hospital Course: The patient was brought to the operating room on 04/02/2025 for elective left total hip arthroplasty via the anterior approach. There were no immediate complications. She was transitioned to recovery unit and then later to the acute care unit of [facility]. There were no acute events overnight. On postoperative day 0 she ambulated well with physical therapy. She stayed overnight due to needing a Morgan to discharge home which was scheduled for head up operator on postoperative day 1. Overnight her pain was well-controlled with oral analgesics. She denied chest pain, shortness of breath, nausea and emesis. Her hemoglobin on postoperative day 1 was 10.9. On postoperative day 1 she was in agreement to proceed with preoperative plan of discharge home today. She had no acute concerns or questions. Exam Vital Signs (past 8 hours): Oxygen Delivery Method Room Air Oxygen Flow Rate 0 Narrative Exam Narrative: Well-developed, well-nourished, 55-year-old female, no acute distress. Dressing is dry and intact to left hip with for 0.25 cm spots of sanguinous drainage. No hematoma or ecchymosis. Femoral and sciatic nerve function intact to left lower extremity. Sensation grossly intact to left foot. Palpable dorsalis pedis pulse. Objective Labs 04/03/25 05:19 04/03/25 05:19 Labs: Laboratory Results - last 24 hr 04/03/25 05:19 WBC 10.5 RBC 3.42 L Hgb 10.9 L Hct 32.0 L MCV 93.5 MCH 32.0 MCHC 34.2 RDW 12.9 Plt Count 220 Neut % (Auto) 81.5 H Lymph % (Auto) 10.3 L [place] % (Auto) 8.1 Eos % (Auto) 0.0 L Baso % (Auto) 0.1 Neut # (Auto) 8500 H Lymph # (Auto) 1100 [place] # (Auto) 800 Eos # (Auto) 0 Baso # (Auto) 0 Sodium 136 L Potassium 4.2 Chloride 105 Carbon Dioxide 28 BUN 14 Creatinine 0.66 Estimated GFR > 60 BUN/Creatinine Ratio 21.2 Glucose 100 H Calcium 8.7 PFSH Medical History (Updated 03/26/25 @ 14:08 by Terese Flores RN) Acid reflux Asthma Primary osteoarthritis of left hip Facet arthropathy, lumbar Sacral dysfunction Femoral acetabular impingement Lumbar radiculopathy Colon polyps (09/10/09) Fibroids Surgical History (Updated 03/26/25 @ 14:37 by Terese Flores RN) H/O gastric sleeve (01/2018) History of total right hip replacement (2023) History of arthroscopy of right shoulder Hx of arthroscopy of right knee S/P left unicompartmental knee replacement History of ear surgery History of colonoscopy (10/03/15) History of colonoscopy with polypectomy (09/10/09) Status post bilateral salpingo-oophorectomy (BSO) (06/29/11) Status post laparoscopic cholecystectomy Status post laparoscopic supracervical hysterectomy (06/29/11) Family History Unknown No pertinent family history Social History household members: spouse Smoking Status: Former smoker alcohol intake: current Discharge Assessment & Plan Assessment and Plan Plan of Treatment: 55 year old female with a past medical history of migraines is post operative day 1 from a left anterior total hip arthroplasty by Dr. Barrett at [facility] on 04/02/25. The patient is recovering well with appropriate pain control on oral analgesics. She did well with physical therapy yesterday. Her vital signs are stable. She is anticipating discharge home today for a 10:30am ferry. Plan:? * Weightbearing as tolerated to left lower extremity with front wheeled walker? * No hip precautions? * DVT prophylaxis with 81 mg of aspirin twice daily? * Continue multimodal analgesia with Tylenol, meloxicam and oxycodone? * Bowel regimen as needed? * Physical therapy recommendation for discharge home in accordance with pre- operative plan * Follow up with orthopedics 2 weeks post operatively * Post operative medications ordered at pre operative visit. Oxycodone prescribed by Jennifer Rosado PA-C yesterday. * Ice to surgical site as needed? Discharge Plan Discharge Plan Patient Disposition: Home Discharge orders & Medications Discharge Orders: Discharge (Order); Ordered 04/03/25 Ordered By: Jennifer Rosado Prescriptions: New oxycodone 5 mg capsule 5 mg PO Q4-6H PRN (Reason: pain) Qty: 30 0RF Continued omeprazole 20 MG capsule,delayed release(DR/EC) 20 mg PO QDAY@0600 Qty: 0 estradiol 0.5 mg tablet 0.5 mg PO DAILY Qty: 90 0RF Rx Instructions: Please schedule appointment with provider for additional refills. Thanks acetaminophen [Tylenol Extra Strength] 500 mg tablet 1,000 mg PO Q8H PRN (Reason: post-op pain) Qty: 60 0RF meloxicam 7.5 mg tablet 7.5 mg PO DAILY PRN (Reason: post-op pain) Qty: 30 0RF Rx Instructions: Do not take w/ Ibuprofen. pantoprazole 40 mg tablet,delayed release (DR/EC) 40 mg PO DAILY Qty: 30 0RF Rx Instructions: Take instead of Omeprazole while using Mobic then transition back to Omeprazole ibuprofen 600 mg tablet 600 mg PO BID PRN (Reason: pain (scale score 4-6)) Patient Comments: TAKE ONE TABLET BY MOUTH EVERY 6 HOURS NEEDED FOR PAIN naloxone 4 mg/actuation spray,non-aerosol 1 spray intranasal ONCE amitriptyline 50 mg tablet 50 mg PO BEDTIME PRN (Reason: sleep) Patient Comments: Take 1 tablet (50 mg total) by mouth nightly. Can increase to 2 tablets if not sleeping hydrocodone-acetaminophen 10-325 mg tablet 1 tab PO Q6H multivitamin [Daily Multi-Vitamin] Tablet 1 tab PO DAILY cyclobenzaprine 10 mg tablet 10 mg PO BID PRN (Reason: muscle spasm) Qty: 60 1RF Follow up/Referrals: Britt Lerma MD [Primary Care Provider, Family Practice] Artis Barrett MD [Physician, Orthopedic Surgery] Diet/Activity/Treatments Diet: Diet as Tolerated and Low-sodium Activity: Weightbearing as tolerated Cold/Heat Therapy: Ice to the hip for additional pain control Visit Report/Discharge Packet Instructions: DI for Hip Replacement Stand Alone Forms: Patient Portal/API Print Language: South Sudanese Discharge Data Primary Care Provider: Britt Lerma Attending Provider: Artis Barrett PROFEE Charge Codes Discharge inpatient/observation: [id number]
[2025-04-03 07:54] VITALS: BP 104/60; PULSE 68; RESP 12; TEMP 35.8; O2SAT 97
[2025-04-03] MEDS: ASPIRIN EC 81 MG TABLET PO (08:07)
[2025-04-03] MEDS: PANTOPRAZOLE DR 40 MG TABLET PO (08:07)
[2025-04-03] MEDS: IBUPROFEN 600 MG TABLET PO (08:07)
[2025-04-03] MEDS: DOCUSATE 100 MG CAPSULE PO (08:08)
[2025-04-03] MEDS: MULTIVITAMIN 1 TABLET 1 TAB PO (08:10)
--- NOTE | 2025-04-03 09:05 | PC.NURSE ---
Pt is dressed and ready for discharge home with family. IV has been removed. Pt states she just had her right hip done and understands her precautions. Went over d/c instructions with Pt=discussed d/c meds, time of last dose, reviewed stroke education, hip precautions, s/s of infection, and follow up appointment. Pt denied further questions and was taken out via w/c by [employer] to POV with family and all belongings.
--- NOTE | 2025-04-03 09:20 | CM.DANOTE ---
DCP Assessment note - Brief Pt is a 55yo F from [place] POD1 left total hip with Dr. Nena SAPPW reviewed EMR. per PT rec home with assistance. per chart pt lives indep at home with spouse. per RN, pt already has ferry reservation for early ferry out. per chart, no identified CM needs at this time pt already left prior to this [employer] seeing them. P: home today with OP f/u rec. CM team will continue to follow in case any DCP needs arise MELITA Lepe Discharge Planning/Care Management CM Discharge Assessment Start: 04/02/25 11:06 Freq: Status: Discharge Protocol: Document 04/03/25 09:18 SL (Rec: 04/03/25 09:19 SL [id number]) Discharge Planning Assessment Assigned Discharge MELITA Azevedo Legal Process Specialist Provider Britt Lerma Insurance Other (enter in Comment) Insurance Comment [employer] DPOA/Assigned Compa, spouse Designee Name Contact Information [phone] Advance Directives? No History Provided By Patient Prior Living House Arrangements Household Members spouse Type of Drives own vehicle transporation used prior to admit Independent with ADL Yes 's Is patient alert and Yes oriented? Discharge Plan Home Referrals Initiated None needed Review Status In Process Please Provide Date 04/03/25 Initial DC Assessment Was Performed Next Review Type Continued Stay Review Pre-Anesthesia Assessment Start: 03/26/25 13:57 Freq: Status: Complete Protocol: Document 03/26/25 13:57 CAB (Rec: 03/26/25 14:41 CAB [id number]) Pre-Anesthesia Assessment PAC Comment Phone assess 03/26/25 Patient Information Phone Assessment Reviewed Via Assessment Completed Patient With Diagnostic Results BMP/CMP,CBC,EKG Comment Labs/EKG @ [facility] 02/09/25 Primary Care Britt Lerma Provider Comment Visit 01/25/25 scanned and in surgery folder Seen Specialist in Yes Last 12 Months Specialist Seen Orthopedist Primary Language Irish Net Developer Architect Required No Height 163.83 cm Weight 77.111 kg Body Mass Index (BMI 28.7 ) Hearing Ability Normal Visual Assist Glasses Dentition Type Teeth, Natural Present Barriers to Learning None Hx Anesthesia No Reactions Hx Family Anesthesia No Reaction Hx Malignant No Hyperthermia Hx Blood No Transfusions Anesthesia Review No Requested Loading Dock Hand No alcohol intake current Alcohol intake a few times a month frequency Smoking Status Former smoker how long ago did Quit 2017 patient quit smoking Substance Use Type [ marijuana #R] Comment Edible Pain Present Pain Reported Musculoskeletal Abnormal Gait,Back Pain,Difficulty Walking,Joint Pain Symptoms History of Falling ( No Recent or History of ) Patient is No completely paralyzed or completely immobile Mental Status Oriented to own ability Is patient on oxygen No ? Does patient have No ALONSO/SOB Hx Sleep Apnea No Currently Taking a No Beta Elizabeth Can You Climb a Yes Flight of Stairs Without SOB Hx Chest Pain No Hx SOB No Hx Syncope or No Dizziness Anti-Coagulant No Therapy Has a Tombstone Carver No Cardiac Testing No Hx Pacemaker/ICD No Pacemaker Rep No Required? Cardiac Clearance No Received Dysphagia No Gastrointestinal None Symptoms Urinary Catheter No Present Hx Urinary Self No Catheterization Diabetes No HgbA1C 4.9 Date 02/09/25 Patient No Lactating No Hx Drug Resistant No Organism Presence of external Yes: Left knee, right hip or internal medical devices? Marital Status Lives With spouse Current Living House Arrangements Number of Floors ( One Floor Floors) Support System Parent(s),Spouse Comment Mom will also assist w/care at DC Does the Patient Yes Have Assistance After Surgery Patient Discharge Return Home Plan Description Comment Pt advised overnight length of stay per surgeon Additional comment Pt lives on [facility] Feels Safe in Yes Current Environment Been Physically Hurt No or Threatened By a Person in Current Environment Do you have thoughts None of harming yourself or others? Are you currently No considering suicide? Do you have a plan No Plan to hurt yourself or others? Do You Have Any No Spiritual Beliefs That May Affect Your HC Choices? Do You Have Any No Cultural Practices That May Affect Your HC Choices? Who Can We Speak to Family, friends About Patient's Care Identifying Code for Declines to issue Release of Patient Information Health Care Proxy/ Compa () Next of Kin Health Care Proxy [phone] Phone Number Emergency Contact Rhonda Lazaro (Mom) Name Emergency Contact [phone] Phone Number Advance Directives? No Power of Insurance Plan Specialist No PAC Instructions Assistance for 24 hours post-op,Do not shave/clip surgical site,Durable medical equipment,Medications to take/avoid,No ETOH/petroleum product on skin DOS,NPO, Pre-surgical wash,Sturdy shoes/comfortable clothes,Do not bring valuables and remove jewelry
== END 2025-04-03 09:07 | disposition home or self-care (01) ==
LOC: OR 10:31 → AC 10:58
PROVIDERS: Physician Assistant Surgical; PCP Specialist; Referring Provider Specialist; Visit Provider Orthopaedic Surgery Adult Reconstructive Orthopaedic Surgery
PROC: (CPT 27130; principal; 2025-04-02 07:45)
DX: M16.12 Unilateral primary osteoarthritis, left hip (principal); Z96.641 Presence of right artificial hip joint; M25.752 Osteophyte, left hip
CPT/HCPCS: 27130; 0054T; 36415; 73502; 76000; 80048; 85025; 97116; 97162; 97530; C1776; C1713; J0689; J1100; J1171; J1885; J2405; J2704